=== PATIENT | female | born 1975 | race Caucasian/White ===

== ENCOUNTER 2020-11-01 06:14 | Emergency (ER) | payer MEDICAID, SELFPAY ==
[2020-11-01 06:14] VITALS: BP 137/83; PULSE 97; RESP 18; TEMP 36.2; O2SAT 100; BMI 24.8
--- NOTE | 2020-11-01 06:32 | EDS_ITS ---
HPI History of Present Illness Chief Complaint: Dental Narrative Narrative: Patient presenting for evaluation secondary to dental pain. Patient states that over the course the last 24 hours she has had an onset of dental pain of her left upper bicuspid. Patient states that overnight she had a development of swelling in the left side of her face. Pain actually got somewhat better at that point. She denies constitutional symptoms such as fever. Pain is worse with eating. There is no swallowing or speech difficulties. Patient denies any history of immunosuppression. She does have a history of multiple dental caries in the past. Review of systems otherwise negative. [facility] Medical History Depressed Home Medications ascorbic acid (vitamin C) [Vitamin C] 500 mg PO DAILY 11/01/20 [History Last Taken Unknown] naproxen 500 mg PO BID PRN #20 tab 11/01/20 [Rx Last Taken Unknown] penicillin V potassium 500 mg PO 4X/DAY #40 tab 11/01/20 [Rx Last Taken Unknown] polysaccharide iron complex [Poly-Iron] 150 mg PO DAILY 11/01/20 [History Last Taken Unknown] sertraline [Zoloft] 12.5 mg PO DAILY 11/01/20 [History Last Taken Unknown] Allergy/AdvReac Type Severity Reaction Status Date / Time No Known Allergies Allergy Verified 11/01/20 06:17 Social History Smoking Status: Current every day smoker tobacco type: cigarettes ROS ROS ED Constitutional Constitutional ED: Denies chills or fever(s) ENT ENT ED: Reports other Details: Dental pain Respiratory/Chest Respiratory/Chest: Denies dyspnea Gastrointestinal Gastrointestinal: Denies nausea or vomiting Musculoskeletal Musculoskeletal: Denies myalgias Integumentary Denies rash Allergic/Immunologic Allergic/Immunologic ED: Denies tongue swelling EXAM Physical Exam Const Vital Signs: 11/01/20 06:14 Temperature 97.2 F L Temperature Source Temporal Pulse Rate 97 Respiratory Rate 18 Blood Pressure 137/83 H Blood Pressure Mean 101 Pulse Ox 100 Positive well nourished and well developed General Appearance ED: well developed and NAD HEENT HEENT Narrative: Oral exam shows poor dentition. No evidence of trismus. Sublingual space is soft. Oropharynx is clear and patent and moist. Patient does have evidence of some focal gum swelling above her left upper bicuspid. There is a slight bogginess to the gum but not obvious fluctuance. Patient does have some swelling over the cheek in that area on the outside of the mouth and face Eyes EOMs intact bilaterally Resp normal respiratory effort Cardio regular rate, regular rhythm and no murmurs Extremity normal to inspection Neuro oriented x3 Sensorium / Orientation: alert Psych mental status grossly normal Skin no rashes or lesions noted MDM MDM MDM Narrative Medical decision making narrative: Patient presented secondary to complications of dental caries. She had an area where there was potentially some very slight bogginess to the gumline which I did offer to try an I&D with an 18-gauge needle. Patient has severe anxiety about dentists and medical treatment and opted that she would not like that, and requested that she be treated strictly with antibiotics. Patient be treated with a course of penicillin Naprosyn. She will follow-up with a dentist. Discharge Plan Triage Chief Complaint: Dental ED Provider: Lance Shipman Dx/Rx/DC Orders Clinical Impression: Dental caries Instructions: ED Dental Pain, ED Dental Cavity Prescriptions: New penicillin V potassium 500 mg tablet 500 mg PO 4X/DAY Qty: 40 RF: 0 naproxen 500 mg tablet 500 mg PO BID PRN Qty: 20 RF: 0 No Action polysaccharide iron complex [Poly-Iron] 150 mg iron Capsule 150 mg PO DAILY RF: 0 ascorbic acid (vitamin C) [Vitamin C] 500 mg Tablet 500 mg PO DAILY RF: 0 sertraline [Zoloft] 25 mg Tablet 12.5 mg PO DAILY RF: 0 Primary Care Provider: Cristobal Aguilar Referrals: Cristobal Aguilar MD [Primary Care Provider] - Activity Restrictions/Additional Instructions: Follow-up with your dentist as soon as possible Disposition Disposition: Home, Self Care
[2020-11-01] MEDS: Penicillin Vk 250 MG Tablet 500 MG PO (06:48)
== END 2020-11-01 06:51 | disposition home or self-care (01) ==
LOC: ED 06:50
PROVIDERS: Emergency Provider Emergency Medicine; PCP Family Medicine
DX: K02.9 Dental caries, unspecified (principal); F17.210 Nicotine dependence, cigarettes, uncomplicated; F32.9 Major depressive disorder, single episode, unspecified; Z79.899 Other long term (current) drug therapy

== ENCOUNTER 2020-11-01 12:25 | Emergency (ER) | payer MEDICAID, SELFPAY ==
[2020-11-01 12:26] VITALS: BP 125/69; PULSE 110; RESP 17; TEMP 36.2; O2SAT 99; BMI 23.6
--- NOTE | 2020-11-01 12:46 | EDS_ITS ---
HPI History of Present Illness Chief Complaint: Dental Narrative Narrative: Patient was seen earlier and placed on penicillin she thinks her face is somewhat more swollen. She has no difficulty swallowing she has no fever or chills. She has no difficulty breathing. She does admit to being quite anxious and wanting to get rechecked. [facility] Medical History Depressed Home Medications ascorbic acid (vitamin C) [Vitamin C] 500 mg PO DAILY 11/01/20 [History Last Taken Unknown] naproxen 500 mg PO BID PRN #20 tab 11/01/20 [Rx Last Taken Unknown] penicillin V potassium 500 mg PO 4X/DAY #40 tab 11/01/20 [Rx Last Taken Unknown] polysaccharide iron complex [Poly-Iron] 150 mg PO DAILY 11/01/20 [History Last Taken Unknown] sertraline [Zoloft] 12.5 mg PO DAILY 11/01/20 [History Last Taken Unknown] Allergy/AdvReac Type Severity Reaction Status Date / Time No Known Allergies Allergy Verified 11/01/20 12:25 Social History Smoking Status: Current every day smoker tobacco type: cigarettes ROS ROS ED ROS Narrative Past medical history: Reviewed, history of anxiety. Medications: Reviewed Social history: Noncontributory Review of systems: All systems negative except as indicated General: No fever Eyes: No visual changes ENT: Dental pain, some facial swelling, normal voice Neck: No neck pain Cardiovascular: No chest pain Respiratory: No shortness of breath or cough Gastrointestinal: No nausea or vomiting Skin: No rash Neurological: No facial droop Psych: Admits to being anxious EXAM Physical Exam Narrative Exam Narrative: Physical exam General: Patient appears anxious, she does not appear toxic she does not appear in significant distress. Head: Normocephalic, Atraumatic Eyes: Conjunctiva not pale ENT: Moist mucous membranes. She has left-sided facial swelling involving the infraorbital region on the left. This swelling is slight. As I palpate I do not appreciate any drainable abscess. She has widespread dental decay. She has a normal soft palate. Normal voice. Normal posterior oropharynx. Neck: Supple, Nontender, No lymphadenopathy Cardiovascular: Regular rate, Regular rhythm Respiratory: No distress, CTA bilaterally Skin: Normal color no rash Neurological: No facial droop Psychological: Anxious appearing Const Vital Signs: 11/01/20 12:26 Temperature 97.2 F L Temperature Source Temporal Pulse Rate 110 H Respiratory Rate 17 Blood Pressure 125/69 H Blood Pressure Mean 87 Pulse Ox 99 Oxygen Delivery Method Room Air MDM MDM MDM Narrative Medical decision making narrative: Patient has slightly worse swelling but this is not yet a failure of outpatient therapy since she only had 1 dose this morning. I will give her clindamycin in the ED but for home she is to continue her penicillin. She appears well I reassured her if anything worsen she can return but at this time there is no evidence of an abscess airway compromise or any systemic symptoms. Discharge Plan Triage Chief Complaint: Dental ED Provider: Papito Craig Dx/Rx/DC Orders Clinical Impression: Dental caries Instructions: Understanding Tooth Decay Prescriptions: No Action polysaccharide iron complex [Poly-Iron] 150 mg iron Capsule 150 mg PO DAILY RF: 0 ascorbic acid (vitamin C) [Vitamin C] 500 mg Tablet 500 mg PO DAILY RF: 0 sertraline [Zoloft] 25 mg Tablet 12.5 mg PO DAILY RF: 0 penicillin V potassium 500 mg tablet 500 mg PO 4X/DAY Qty: 40 RF: 0 naproxen 500 mg tablet 500 mg PO BID PRN Qty: 20 RF: 0 Primary Care Provider: Cristobal Aguilar Referrals: Cristobal Aguilar MD [Primary Care Provider] -
[2020-11-01] MEDS: Clindamycin HCl 150 MG Capsule 450 MG PO (12:53)
[2020-11-01 13:19] VITALS: BP 132/74; PULSE 69; RESP 15; O2SAT 99
== END 2020-11-01 13:20 | disposition home or self-care (01) ==
PROVIDERS: Emergency Provider Emergency Medicine; PCP Family Medicine
DX: K02.9 Dental caries, unspecified (principal); F17.210 Nicotine dependence, cigarettes, uncomplicated; F32.9 Major depressive disorder, single episode, unspecified; Z79.899 Other long term (current) drug therapy
CPT/HCPCS: 99282; 99283

== ENCOUNTER 2020-11-02 07:52 | Emergency (ER) | payer MEDICAID, SELFPAY ==
[2020-11-02 07:52] VITALS: BP 146/78; PULSE 90; RESP 14; TEMP 36.9; O2SAT 99; BMI 25.0
[2020-11-02 08:07] VITALS: BP 146/78; PULSE 90; RESP 14; TEMP 36.9; O2SAT 99
[2020-11-02 09:25] LABS: Absolute Lymphocyte Count 1.94 X10^3/uL (0.83-4.51); Absolute Neutrophil Count 11.1 X10^3/uL (2.0-7.7); Basophil# 0.05 X10^3/uL; Basophil% 0.4 % (0-1); Eosinophil# 0.03 X10^3/uL; Eosinophils% 0.2 % (0-5); Hematocrit 41.9 % (37-47); Hemoglobin 13.8 g/dL (12.0-15.0); Lymphocyte # 1.94 X10^3/ul (0.83-4.51); Lymphocyte % 13.7 % (19-41); Mean Corp Hgb Conc 32.9 g/dL (32-36); Mean Corpuscular Hgb 30.9 pg (27.0-32.0); Mean Corpuscular Volume 93.9 fL (81-99); Mean Platelet Vol. 10.3 fl (6.2-12.0); Monocyte# 1.03 X10^3/uL; Monocyte% 7.3 % (0-10); NRBC Flagged by Analyzer 0 % (0-5); Neutrophil # 11.07 X10^3/uL (2.7-7.7); POSITIVE MORPHOLOGY YES; Platelet Count 346 K/mm3 (150-450); RBC Distribution Width SD 44.7 fl (35.1-43.9); Red Blood Count 4.46 M/mm3 (4.2-5.4); White Blood Count 14.2 K/mm3 (4.4-11.0)
[2020-11-02 09:26] LABS: Differential Indicated SCAN CRITERIA MET
[2020-11-02 09:37] LABS: Anion Gap 6 (5-15); BUN 4 mg/dL (7-18); BUN/Creat Ratio 6.4 RATIO (10-20); Calcium,Total 9.1 mg/dL (8.5-10.1); Chloride 104 mmol/L (98-107); Creatinine, Serum 0.63 mg/dL (0.55-1.02); EST Glomerular Filtration Rate 108 mL/min (>60); Est Glom Filt Rate - Afr Amer 131 mL/min (>60); Estimated Creatinine Clearance 96.35 ml/min; Glucose 109 mg/dL (74-106); Potassium 3.7 mmol/L (3.5-5.1); Sodium Level 139 mmol/L (136-145)
--- NOTE | 2020-11-02 10:48 | ED.VIS.DENTA ---
HPI History of Present Illness Chief Complaint: Dental Informant: patient Onset/Context/Timing Onset: Yesterday Context: Gradual Onset Timing: Continuous Quality: Pressure, stabbing Location: Left upper teeth Worsened by: Nothing Relieved by: - (Nothing) Associated Symptoms Assocated Symptom - Dental: jaw swelling, face swelling, cold sensitivity and hot sensitivity; Negative for fever Narrative Narrative: Patient presents with left upper dental pain that has been getting worse since yesterday. Patient was seen here for this twice yesterday. Patient was given a prescription for penicillin yesterday. Patient states she has been taking this with no improvement. Patient states the swelling is worse today. Patient states the swelling is spreading up towards her left thigh. Patient admits to hot and cold sensitivity. Patient denies any fevers or chills. PFSH PFSH Medical History Anxiety Depressed Home Medications ascorbic acid (vitamin C) [Vitamin C] 500 mg PO DAILY 11/01/20 [History Last Taken Unknown] naproxen 500 mg PO BID PRN #20 tab 11/01/20 [Rx Last Taken Unknown] polysaccharide iron complex [Poly-Iron] 150 mg PO DAILY 11/01/20 [History Last Taken Unknown] sertraline [Zoloft] 12.5 mg PO DAILY 11/01/20 [History Last Taken Unknown] amoxicillin-pot clavulanate 875 mg PO Q12H #20 tablet 11/02/20 [Rx Last Taken Unknown] Allergy/AdvReac Type Severity Reaction Status Date / Time No Known Allergies Allergy Verified 11/02/20 07:55 Social History Smoking Status: Current every day smoker tobacco type: cigarettes ROS ROS ED Constitutional Constitutional ED: Denies chills or fever(s) Eyes Eyes: Denies blurry vision or change in vision ENT ENT ED: Reports sore throat; Denies rhinorrhea Cardiovascular Cardiovascular: Reports chest pain; Denies palpitations Respiratory/Chest Respiratory/Chest: Reports dyspnea; Denies cough Gastrointestinal Gastrointestinal: Reports nausea; Denies vomiting Genitourinary Genitourinary ED: Denies dysuria or hematuria Musculoskeletal Musculoskeletal: Reports neck pain; Denies back pain Integumentary Denies abscess or rash Neurologic Neurologic: Reports headache(s); Denies weakness Allergic/Immunologic Allergic/Immunologic ED: Denies mouth swelling or urticaria EXAM Physical Exam Const Vital Signs: 11/02/20 07:52 11/02/20 08:07 Temperature 98.4 F 98.4 F Temperature Source Temporal Temporal Pulse Rate 90 90 Respiratory Rate 14 14 Blood Pressure 146/78 H 146/78 H Blood Pressure Mean 100 100 Pulse Ox 99 99 Oxygen Delivery Method Room Air Room Air Positive well nourished and well developed General Appearance ED: well developed HEENT HEENT Narrative: There is tenderness over the left upper premolars and molars. There are some dental caries noted. There is edema over the left cheek. There is no fluctuance. There is no discharge or drainage. Oropharynx is clear. Airway is patent. Neck is supple. Trachea is midline. There is no JVD or lymphadenopathy. There is no sublingual edema or erythema. Eyes PERRL and EOMs intact bilaterally Neck no lymphadenopathy and supple Resp normal respiratory effort and clear to auscultation bilaterally Cardio regular rate and regular rhythm Neuro oriented x3, CN's II-XII intact bilaterally, moves all extremities, no focal motor deficits and no sensory deficits noted Sensorium / Orientation: alert Psych mental status grossly normal MDM MDM MDM Narrative Medical decision making narrative: Patient was given a dose of Unasyn here. CBC shows a slight leukocytosis of 14.2. Basic metabolic profile was within normal limits. Patient was instructed to stop taking the penicillin. Patient was given a prescription for Augmentin. Patient was instructed to follow-up with her dentist in 3 to 5 days. Patient was given a dose of ibuprofen here. Patient understood and was agreeable with the plan. All questions were answered. Lab Data Labs: Laboratory Results - last 24 hr 11/02/20 11/02/20 09:17 09:17 WBC 14.2 H RBC 4.46 Hgb 13.8 Hct 41.9 MCV 93.9 MCH 30.9 MCHC 32.9 RDW Std Deviation 44.7 H RDW Coeff of Nicole 13.0 Plt Count 346 MPV 10.3 Immature Gran % (Auto) 0.400 Neut % (Auto) 78.0 H Lymph % (Auto) 13.7 L [place] % (Auto) 7.3 Eos % (Auto) 0.2 Baso % (Auto) 0.4 Absolute Neuts (auto) 11.1 H Absolute Lymphs (auto) 1.94 Nucleated RBC % 0 Sodium 139 Potassium 3.7 Chloride 104 Carbon Dioxide 29.0 Anion Gap 6 BUN 4 L Creatinine 0.63 Estim Creat Clear Calc 96.35 Est GFR (MDRD) Af Amer 131 Est GFR (MDRD) Non-Af 108 BUN/Creatinine Ratio 6.4 L Glucose 109 H Calcium 9.1 Discharge Plan Triage Chief Complaint: Dental ED Provider: Ceferino Kaur Dx/Rx/DC Orders Clinical Impression: Infected dental caries Instructions: ED Dental Abscess Facial Cellulitis Prescriptions: New amoxicillin-pot clavulanate [amoxicillin-pot clavulanate] 875 MG tablet 875 mg PO Q12H Qty: 20 RF: 0 Discontinued penicillin V potassium 500 mg tablet 500 mg PO 4X/DAY Qty: 40 RF: 0 No Action polysaccharide iron complex [Poly-Iron] 150 mg iron Capsule 150 mg PO DAILY RF: 0 ascorbic acid (vitamin C) [Vitamin C] 500 mg Tablet 500 mg PO DAILY RF: 0 sertraline [Zoloft] 25 mg Tablet 12.5 mg PO DAILY RF: 0 naproxen 500 mg tablet 500 mg PO BID PRN Qty: 20 RF: 0 Primary Care Provider: Cristobal Aguilar Referrals: Cristobal Aguilar MD [Primary Care Provider] - 5-7 Days Dentist,Your [STAFF PHYSICIAN] - 3-5 Days Disposition Disposition: Home, Self Care
[2020-11-02] MEDS: Ibuprofen 400 MG Tablet 800 MG PO (11:11)
[2020-11-02 11:14] VITALS: TEMP 37.1
== END 2020-11-02 11:17 | disposition home or self-care (01) ==
PROVIDERS: Emergency Provider Emergency Medicine; PCP Family Medicine
DX: K02.9 Dental caries, unspecified (principal); F17.210 Nicotine dependence, cigarettes, uncomplicated; F32.9 Major depressive disorder, single episode, unspecified; F41.9 Anxiety disorder, unspecified; Z79.899 Other long term (current) drug therapy
CPT/HCPCS: 80048; 85025; 96365; 96366; 99284; J7050; A4216; J0295